=== PATIENT | male | born 1970 | race Caucasian/White ===

== ENCOUNTER 2020-01-30 14:11 | Inpatient (IN) | payer OTHER ==
[~2020-01-30] VITALS: Ht 195.6 cm; Wt 92.6 kg
[2020-01-30 14:27] VITALS: BP 140/102
[2020-01-30] MEDS ORDERED: XANAX 0.5 MG0.5 M1 PO (14:30)
[2020-01-30 14:52] LABS: ABSOLUTE LYMPHOCYTES 0.9 thou/uL (0.8-5.3); ABSOLUTE MONOCYTES 0.7 thou/uL (0.0-1.2); ABSOLUTE NEUTROPHILS 6.6 thou/uL (1.6-8.1); BASOPHILS 0.4 %; HEMOGLOBIN 15.2 gm/dL (14.0-18.0); MCH 33.9 pg (26.0-34.0); MCHC 35.3 g/dL (28.0-37.0); MCV 96.2 fL (80.0-100.0); MONOCYTES 8.9 %; MPV 7.5 fl. (7.2-11.1); NUCLEATED RBCS 0 /100WBC; PLATELET COUNT* 249 thou/uL (150-400); POLYS 79.7 %; RBC 4.47 mil/uL (4.50-6.00); RDW-CV 13.9 % (10.5-14.5); WBC 8.3 thou/uL (4.0-11.0)
[2020-01-30 15:01] LABS: CALCIUM 8.6 mg/dL (8.5-10.1); CREATININE 1.1 mg/dL (0.6-1.3); POTASSIUM 3.4 mmol/L (3.5-5.1)
[2020-01-30 15:05] LABS: TOTAL BILIRUBIN 0.7 mg/dL (<0.1-1.0); TOTAL PROTEIN 7.6 g/dL (6.4-8.2)
[2020-01-30 16:16] LABS: URINE BLOOD NEGATIVE (Negative); URINE CLARITY CLEAR; URINE COLOR YELLOW; URINE GLUCOSE-RANDOM NEGATIVE (Negative); URINE KETONES 1+ (Negative); URINE LEUKOCYTES-REFLEX NEGATIVE (Negative); URINE NITRITE-REFLEX NEGATIVE (Negative); URINE PROTEIN NEGATIVE (Negative); URINE SPECIFIC GRAVITY 1.015 (1.005-1.030); URINE UROBILINOGEN 0.2 E.U./dl (0.2-1.0)
[2020-01-30 16:17] LABS: URINE BILIRUBIN 1+ (Negative)
[2020-01-30 16:18] LABS: ICTOTEST (BILI CONFIRMATORY) Negative (Negative)
[2020-01-30 19:22] VITALS: BP 124/75
[2020-01-30] MEDS ORDERED: CELEXA 20 MG TA20 MG PO ×2 (21:22→21:23)
[2020-01-31 04:03] LABS: HEMATOCRIT 38.2 % (42.0-52.0); MCH 33.7 pg (26.0-34.0); MCHC 34.7 g/dL (28.0-37.0); MCV 97.2 fL (80.0-100.0); MPV 7.6 fl. (7.2-11.1); RBC 3.93 mil/uL (4.50-6.00); RDW-CV 13.5 % (10.5-14.5); WBC 6.1 thou/uL (4.0-11.0)
[2020-01-31 04:25] LABS: APTT 27.6 Seconds (25.0-31.3); INR 1.1; PROTIME 10.8 Seconds (9.20-11.50)
[2020-01-31 04:34] LABS: HEMOGLOBIN 13.2 gm/dL (14.0-18.0)
[2020-01-31 04:51] LABS: CALCIUM 7.4 mg/dL (8.5-10.1); MAGNESIUM 1.8 mg/dL (1.8-2.4); POTASSIUM 3.7 mmol/L (3.5-5.1); TOTAL BILIRUBIN 0.7 mg/dL (<0.1-1.0)
[2020-01-31 07:54] VITALS: BP 123/83
--- NOTE | 2020-01-31 10:59 | EKG ---
[place] [address] ELECTROCARDIOGRAM REPORT Name: CORETTA MUSE Room: [address] ADM IN .R.#: [id number] Admission: 01/30/20 Attend Phys: Coretta Quezada, Discharge: Date of : 74 Date of Service: 01/30/20 1453 Report #: [id number] THIS REPORT FOR: //name// [facility] ED Test Date: 2020-01-30 Test Time: 14:53:15 Pat Name: CORETTA MUSE Department: Room: [facility] Gender: M Interlocker: : 1970 Requested By: Marcie Hebert Order Number: [id number] MD: Catracho Rosa Measurements Intervals [place] Rate: 59 P: -8 [place]: 159 QRS: -36 QRSD: 106 T: 30 QT: 437 QTc: 433 Interpretive Statements Sinus rhythm septal q waves noted Left ventricular hypertrophy No previous ECG available for comparison Electronically Signed On 01-31-2020 10:58:34 MULE OPERATOR by Catracho Rosa [email or web address] <ELECTRONICALLY SIGNED> By: Catracho Rosa MD, [facility] 01/31/20 1058 1453 1453 Catracho Rosa MD, [facility] /EPI
[2020-01-31 19:45] VITALS: BP 132/80
[2020-02-01 03:28] LABS: HEMATOCRIT 38.1 % (42.0-52.0); HEMOGLOBIN 13.2 gm/dL (14.0-18.0); MCH 33.5 pg (26.0-34.0); MCHC 34.7 g/dL (28.0-37.0); MCV 96.6 fL (80.0-100.0); MPV 7.6 fl. (7.2-11.1); RBC 3.94 mil/uL (4.50-6.00); RDW-CV 13.5 % (10.5-14.5); WBC 7.5 thou/uL (4.0-11.0)
[2020-02-01 03:51] LABS: CALCIUM 8.2 mg/dL (8.5-10.1); CREATININE 0.9 mg/dL (0.6-1.3); TOTAL BILIRUBIN 0.5 mg/dL (<0.1-1.0); TOTAL PROTEIN 6.1 g/dL (6.4-8.2)
[2020-02-01 04:00] VITALS: BP 123/85
[2020-02-01 07:47] VITALS: BP 135/91
[2020-02-01] MEDS ORDERED: NORCO 5-325 TA1 EAC1 PO (09:10)
[2020-02-01 10:50] VITALS: BP 135/91
--- NOTE | 2020-02-02 17:07 | PATH ---
[address] [address] PATHOLOGY RPT PROCEDURE Name: LEONELISSACORETTA Room: [address] IN .R.#: [id number] Admission: 01/30/20 Date of : 74 Discharge: 02/01/20 Report #: [id number] Path Case #: [id number] [facility] Accession Number: [id number] . 01 Material submitted: . gallbladder - GALLBLADDER . 01 Clinical history: . Acute cholecystitis . 02 Diagnosis: Gallbladder: - Chronic and acute erosive cholecystitis with cholelithiasis and benign sentinel lymph node showing hyperplasia and lipophagic reaction. (LETTY/db; 02/02/2020) LBQ 02/02/2020 1253 Local . 02 Electronically signed: . Thony Murphy MD, Pathologist NPI- [id number] . 01 Gross description: . The specimen is received in formalin, labeled "nilda Villalobos". Received is an intact gallbladder measuring 12.8 x 3.8 x 2.0 cm in greatest dimensions displaying a pink-kline serosal surface. Opening the specimen reveals a velvety, light brown mucosa with a gallbladder wall thickness of 0.1 cm. The lumen of the gallbladder is filled with pale-egan, friable material admixed with clear mucoid-like fluid. Calculi are present displaying a yellow-egan and nodular appearance, and no masses or lesions are noted grossly. Near the proximal margin, a single lymph node is identified measuring 0.7 cm in maximum dimensions. [employer] Lead sections, to include the proximal margin and bisected lymph node, are submitted in cassette A1. (CAA; 02/01/2020) QAC/QAC 02/01/2020 1621 Local . 02 Pathologist provided ICD-10: K80.12 . 02 CPT . 185759 Specimen Comment: A courtesy copy of this report has been sent to [phone], [phone] Specimen Comment: [phone], Specimen Comment: Report sent to ,DR OLSON / DR HENLEY Performed at: [address], [place], [place] [id number] [place] [address] PATHOLOGY RPT PROCEDURE Name: CORETTA MUES Room: [address] IN M.R.#: [id number] Admission: 01/30/20 Date of : 74 Discharge: 02/01/20 Report #: [id number] Path Case #: [id number] MD Deandre Gillette MD Phone: [phone] Performed at: 02 [facility] [address] [place] [id number] MD Thony Murphy MD Phone: [phone]
== END 2020-02-01 11:46 | disposition home or self-care (01) | DRG 419 ==
LOC: M.ERS 14:11 → M.TBA-ER 17:02 → M.ORTHSURG 17:02
PROVIDERS: Nurse Practitioner Family; Surgery; ADMIT Internal Medicine
PROC: 0FT44ZZ Resection of Gallbladder, Percutaneous Endoscopic Approach (ICD-10-PCS; principal; 2020-01-31)
DX: K80.00 Calculus of gallbladder with acute cholecystitis without obstruction (principal); K52.9 Noninfective gastroenteritis and colitis, unspecified; F41.9 Anxiety disorder, unspecified; E87.6 Hypokalemia; Z79.899 Other long term (current) drug therapy; Z88.0 Allergy status to penicillin